=== PATIENT | female | born 1965 | race Caucasian/White ===

== ENCOUNTER 2017-02-07 08:21 | Observation (INO) | payer MEDICARE, OTHER ==
[~2017-02-07] VITALS: Ht 154.9 cm; Wt 53.1 kg
[2017-02-07 09:11] LABS: HEMOGLOBIN 13.5 gm/dl (12.3-15.3); RED BLOOD COUNT 4.48 M/UL (4.00-5.10); WHITE BLOOD COUNT 14.8 K/UL (4.5-11.0)
[2017-02-07 09:29] LABS: BUN/CREATININE RATIO 14 (0-10)
[2017-02-07] MEDS ORDERED: METFORMIN HCL1000 MG PO (17:29)
[2017-02-07] MEDS ORDERED: LEVOCETIRIZINE D5 MG PO (17:29)
[2017-02-07] MEDS ORDERED: ACTOS45 MG PO (17:30)
[2017-02-07] MEDS ORDERED: ZANAFLEX 4 MG TA4 MG PO (17:31)
[2017-02-07] MEDS ORDERED: GABAPENTIN800 MG PO (17:32)
[2017-02-07] MEDS ORDERED: ELAVIL 50 MG TA50 MG PO (17:32)
[2017-02-07] MEDS ORDERED: SPIRIVA18 MCG INH (17:33)
[2017-02-07] MEDS ORDERED: SYMBICORT 160-1 INHA INH (17:34)
[2017-02-07] MEDS ORDERED: PROTONIX40 MG PO (17:34)
[2017-02-07] MEDS ORDERED: IBUPROFEN600 MG PO (17:35)
[2017-02-07] MEDS ORDERED: MIRTAZAPINE45 MG PO (17:36)
[2017-02-07] MEDS ORDERED: DALIRESP500 MCG PO (17:36)
[2017-02-07] MEDS ORDERED: KEPPRA500 MG PO (17:37)
[2017-02-08 06:18] LABS: HEMOGLOBIN 11.5 gm/dl (12.3-15.3); RED BLOOD COUNT 3.82 M/UL (4.00-5.10); WHITE BLOOD COUNT 7.7 K/UL (4.5-11.0)
[2017-02-08 06:19] LABS: BUN/CREATININE RATIO 16 (0-10)
[2017-02-09] MEDS ORDERED: LEVOFLOXACIN750 MG PO (13:42)
[2017-02-09] MEDS ORDERED: TESSALON PERLE100 MG PO (13:43)
[2017-02-09] MEDS ORDERED: MEDROL DOSEPAK 24 MG PO (13:43)
[2017-06-15] MEDS ORDERED: LORTAB 5-325 M1 EACH PO (13:36)
[2017-07-24] MEDS ORDERED: SPIRIVA RESPIMAT4 GM INH (01:05)
[2017-07-24] MEDS ORDERED: TRAMADOL HCL50 MG PO (01:05)
[2017-07-24] MEDS ORDERED: MUCINEX600 MG PO (01:06)
[2017-07-24] MEDS ORDERED: PREDNISONE 20 M20 MG PO (01:06)
[2017-07-24] MEDS ORDERED: LEVAQUIN750 MG PO (01:07)
[2017-07-24] MEDS ORDERED: LANTUS100 UNIT/1 SQ (01:08)
[2017-07-24] MEDS ORDERED: KEPPRA500 MG PO (07:47)
[2017-07-26] MEDS ORDERED: PROAIR HFA8.5 GM INH (11:30)
[2017-07-26] MEDS ORDERED: PREDNISONE10 MG PO (11:39)
[2017-07-26] MEDS ORDERED: ALPRAZOLAM0.5 MG PO (12:10)
== END 2017-02-09 13:00 | disposition home or self-care (01) ==
LOC: ER1 08:21 → ZEROF 10:30 → M/S 10:30
PROVIDERS: Emergency Medicine; ADMIT Family Medicine
DX: J44.1 Chronic obstructive pulmonary disease with (acute) exacerbation (principal); J20.9 Acute bronchitis, unspecified; J44.0 Chronic obstructive pulmonary disease with (acute) lower respiratory infection; J96.21 Acute and chronic respiratory failure with hypoxia; J96.22 Acute and chronic respiratory failure with hypercapnia; E11.9 Type 2 diabetes mellitus without complications; E87.2 Acidosis; M62.82 Rhabdomyolysis; F17.210 Nicotine dependence, cigarettes, uncomplicated; Z86.69 Personal history of other diseases of the nervous system and sense organs; Z82.5 Family history of asthma and other chronic lower respiratory diseases; Z81.2 Family history of tobacco abuse and dependence; Z82.49 Family history of ischemic heart disease and other diseases of the circulatory system; Z88.0 Allergy status to penicillin; Z79.2 Long term (current) use of antibiotics; Z79.899 Other long term (current) drug therapy; Z90.49 Acquired absence of other specified parts of digestive tract; Z90.710 Acquired absence of both cervix and uterus; Z98.890 Other specified postprocedural states
CPT/HCPCS: 36415; 36600; 71010; 80053; 82550; 82553; 82803; 82962; 83036; 83605; 83735; 83874; 84439; 84443; 84484; 85025; 87040; 93005; 94640; 94660; 94664; 96365; 96375; 99291; G0378; J1650; J1815; J1956; J2405; J2920; J2930; J7030

== ENCOUNTER 2017-04-14 15:31 | Emergency (ER) | payer MEDICARE, OTHER ==
[~2017-04-14 15:31] MED LIST: ACTOS45 MG PO; DALIRESP500 MCG PO; ELAVIL 50 MG TA50 MG PO; GABAPENTIN800 MG PO; IBUPROFEN600 MG PO; KEPPRA500 MG PO; LEVOCETIRIZINE D5 MG PO; LEVOFLOXACIN750 MG PO; MEDROL DOSEPAK 24 MG PO; METFORMIN HCL1000 MG PO; MIRTAZAPINE45 MG PO; PROTONIX40 MG PO; SPIRIVA18 MCG INH; SYMBICORT 160-1 INHA INH; TESSALON PERLE100 MG PO; ZANAFLEX 4 MG TA4 MG PO
[2017-04-14 18:04] LABS: HEMOGLOBIN 13.1 gm/dl (12.3-15.3); RED BLOOD COUNT 4.42 M/UL (4.00-5.10); WHITE BLOOD COUNT 7.1 K/UL (4.5-11.0)
[2017-04-14 18:47] LABS: BUN/CREATININE RATIO 16 (0-10)
[2017-06-15] MEDS ORDERED: LORTAB 5-325 M1 EACH PO (13:36)
[2017-07-24] MEDS ORDERED: SPIRIVA RESPIMAT4 GM INH (01:05)
[2017-07-24] MEDS ORDERED: TRAMADOL HCL50 MG PO (01:05)
[2017-07-24] MEDS ORDERED: MUCINEX600 MG PO (01:06)
[2017-07-24] MEDS ORDERED: PREDNISONE 20 M20 MG PO (01:06)
[2017-07-24] MEDS ORDERED: LEVAQUIN750 MG PO (01:07)
[2017-07-24] MEDS ORDERED: LANTUS100 UNIT/1 SQ (01:08)
[2017-07-24] MEDS ORDERED: KEPPRA500 MG PO (07:47)
[2017-07-26] MEDS ORDERED: PROAIR HFA8.5 GM INH (11:30)
[2017-07-26] MEDS ORDERED: PREDNISONE10 MG PO (11:39)
[2017-07-26] MEDS ORDERED: ALPRAZOLAM0.5 MG PO (12:10)
== END 2017-04-14 21:52 | disposition home or self-care (01) ==
LOC: ER1 15:31
PROVIDERS: Emergency Medicine
DX: J44.1 Chronic obstructive pulmonary disease with (acute) exacerbation (principal); R94.31 Abnormal electrocardiogram [ECG] [EKG]; I10 Essential (primary) hypertension; F17.200 Nicotine dependence, unspecified, uncomplicated
CPT/HCPCS: 36415; 71020; 80053; 81001; 83605; 83690; 83880; 84484; 85025; 85610; 85730; 87040; 87086; 93005; 94640; 94664; 96361; 96374; 96375; 99285; J2405; J2930

== ENCOUNTER 2017-04-26 20:52 | Inpatient (IN) | payer MEDICARE, OTHER ==
[~2017-04-26] VITALS: Ht 157.5 cm; Wt 52.2 kg
[2017-04-26 21:27] LABS: RED BLOOD COUNT 4.4 M/UL (4.00-5.10); WHITE BLOOD COUNT 13.1 K/UL (4.5-11.0)
[2017-04-26 21:50] LABS: BUN/CREATININE RATIO 14 (0-10)
[2017-04-27 05:49] LABS: RED BLOOD COUNT 4.08 M/UL (4.00-5.10)
[2017-04-27 05:52] LABS: WHITE BLOOD COUNT 7.7 K/UL (4.5-11.0)
[2017-04-27 06:18] LABS: BUN/CREATININE RATIO 18 (0-10)
[2017-06-15] MEDS ORDERED: LORTAB 5-325 M1 EACH PO (13:36)
[2017-07-24] MEDS ORDERED: SPIRIVA RESPIMAT4 GM INH (01:05)
[2017-07-24] MEDS ORDERED: TRAMADOL HCL50 MG PO (01:05)
[2017-07-24] MEDS ORDERED: MUCINEX600 MG PO (01:06)
[2017-07-24] MEDS ORDERED: PREDNISONE 20 M20 MG PO (01:06)
[2017-07-24] MEDS ORDERED: LEVAQUIN750 MG PO (01:07)
[2017-07-24] MEDS ORDERED: LANTUS100 UNIT/1 SQ (01:08)
[2017-07-24] MEDS ORDERED: KEPPRA500 MG PO (07:47)
[2017-07-26] MEDS ORDERED: PROAIR HFA8.5 GM INH (11:30)
[2017-07-26] MEDS ORDERED: PREDNISONE10 MG PO (11:39)
[2017-07-26] MEDS ORDERED: ALPRAZOLAM0.5 MG PO (12:10)
== END 2017-04-27 14:23 | disposition left against medical advice (07) | DRG 189 ==
LOC: ER1 20:52 → M/S 04-27 00:25
PROVIDERS: Family Medicine; ADMIT Internal Medicine
DX: J96.22 Acute and chronic respiratory failure with hypercapnia (principal); J44.1 Chronic obstructive pulmonary disease with (acute) exacerbation; J96.21 Acute and chronic respiratory failure with hypoxia; E11.9 Type 2 diabetes mellitus without complications; F17.210 Nicotine dependence, cigarettes, uncomplicated; Z79.84 Long term (current) use of oral hypoglycemic drugs; Z79.1 Long term (current) use of non-steroidal anti-inflammatories (NSAID); Z99.81 Dependence on supplemental oxygen; Z79.51 Long term (current) use of inhaled steroids; Z79.899 Other long term (current) drug therapy; Z88.0 Allergy status to penicillin; Z90.710 Acquired absence of both cervix and uterus; Z90.49 Acquired absence of other specified parts of digestive tract; Z98.890 Other specified postprocedural states; Z82.5 Family history of asthma and other chronic lower respiratory diseases
CPT/HCPCS: 36415; 36600; 71010; 80048; 80053; 82550; 82553; 82803; 82962; 83735; 83874; 83880; 84100; 84439; 84443; 84484; 85025; 93005; 94640; 94664; 96374; 99285; J1650; J1956; J2930

== ENCOUNTER 2017-05-01 10:08 | Emergency (ER) | payer MEDICARE, OTHER ==
[2017-05-01 11:39] LABS: HEMOGLOBIN 13.9 gm/dl (12.3-15.3); RED BLOOD COUNT 4.67 M/UL (4.00-5.10); WHITE BLOOD COUNT 7.5 K/UL (4.5-11.0)
[2017-05-01 12:06] LABS: BUN/CREATININE RATIO 13 (0-10)
[2017-06-15] MEDS ORDERED: LORTAB 5-325 M1 EACH PO (13:36)
[2017-07-24] MEDS ORDERED: TRAMADOL HCL50 MG PO (01:05)
[2017-07-24] MEDS ORDERED: SPIRIVA RESPIMAT4 GM INH (01:05)
[2017-07-24] MEDS ORDERED: MUCINEX600 MG PO (01:06)
[2017-07-24] MEDS ORDERED: PREDNISONE 20 M20 MG PO (01:06)
[2017-07-24] MEDS ORDERED: LEVAQUIN750 MG PO (01:07)
[2017-07-24] MEDS ORDERED: LANTUS100 UNIT/1 SQ (01:08)
[2017-07-24] MEDS ORDERED: KEPPRA500 MG PO (07:47)
[2017-07-26] MEDS ORDERED: PROAIR HFA8.5 GM INH (11:30)
[2017-07-26] MEDS ORDERED: PREDNISONE10 MG PO (11:39)
[2017-07-26] MEDS ORDERED: ALPRAZOLAM0.5 MG PO (12:10)
== END 2017-05-01 13:22 | disposition home or self-care (01) ==
LOC: ER1 10:08
PROVIDERS: Specialist/Technologist Athletic Trainer
DX: J44.0 Chronic obstructive pulmonary disease with (acute) lower respiratory infection (principal); J20.9 Acute bronchitis, unspecified; J44.1 Chronic obstructive pulmonary disease with (acute) exacerbation; E11.9 Type 2 diabetes mellitus without complications; F17.200 Nicotine dependence, unspecified, uncomplicated; Z88.0 Allergy status to penicillin; Z79.4 Long term (current) use of insulin; Z99.81 Dependence on supplemental oxygen
CPT/HCPCS: 36415; 71250; 80053; 83690; 85025; 94640; 94664; 96365; 96375; 99285; C9113; J1956; J2270; J2930

== ENCOUNTER 2017-05-12 21:43 | Emergency (ER) | payer MEDICARE, OTHER ==
[2017-05-12 23:07] LABS: HEMOGLOBIN 15.5 gm/dl (12.3-15.3); RED BLOOD COUNT 5.19 M/UL (4.00-5.10); WHITE BLOOD COUNT 14.4 K/UL (4.5-11.0)
[2017-05-12 23:41] LABS: BUN/CREATININE RATIO 21 (0-10)
[2017-06-15] MEDS ORDERED: LORTAB 5-325 M1 EACH PO (13:36)
[2017-07-24] MEDS ORDERED: TRAMADOL HCL50 MG PO (01:05)
[2017-07-24] MEDS ORDERED: SPIRIVA RESPIMAT4 GM INH (01:05)
[2017-07-24] MEDS ORDERED: PREDNISONE 20 M20 MG PO (01:06)
[2017-07-24] MEDS ORDERED: MUCINEX600 MG PO (01:06)
[2017-07-24] MEDS ORDERED: LEVAQUIN750 MG PO (01:07)
[2017-07-24] MEDS ORDERED: LANTUS100 UNIT/1 SQ (01:08)
[2017-07-24] MEDS ORDERED: KEPPRA500 MG PO (07:47)
[2017-07-26] MEDS ORDERED: PROAIR HFA8.5 GM INH (11:30)
[2017-07-26] MEDS ORDERED: PREDNISONE10 MG PO (11:39)
[2017-07-26] MEDS ORDERED: ALPRAZOLAM0.5 MG PO (12:10)
== END 2017-05-13 02:30 | disposition home or self-care (01) ==
LOC: ER1 21:43
PROVIDERS: Family Medicine
DX: J44.1 Chronic obstructive pulmonary disease with (acute) exacerbation (principal); F17.200 Nicotine dependence, unspecified, uncomplicated; R07.89 Other chest pain; Z88.0 Allergy status to penicillin
CPT/HCPCS: 36415; 36600; 71010; 80053; 82550; 82553; 82803; 83874; 84484; 85025; 85379; 93005; 99285